=== PATIENT | female | born 1960 | race Caucasian/White ===

== ENCOUNTER 2017-06-11 06:36 | Day surgery (SDC) | payer BC ==
[~2017-06-11] VITALS: Ht 165.1 cm; Wt 169.2 kg
[~2017-06-11 06:36] MED LIST: ALEVE220 M2 PO; BUMEX0.5 MG PO; CALCIUM PO; CINNAMON500 MG PO; CLARITIN,ALAVAR10 MG PO; COZAAR100 MG PO; CRESTOR10 MG PO; EPIPEN ADU0.3 MG/0.3 IM; GINSENG COMPLE1 EACH PO; GLUCOPHAGE500 MG PO; KLOR-CON 1010 ME1 PO; NORVASC5 MG PO; OMEGA-3 1,0501 EACH PO; PREVACID30 MG PO; UNISOM SLEEP AI25 MG PO; VITAMIN B12 PO; VITAMIN PO; ZINC OXYDE PLUS TP
[2017-06-11 07:34] VITALS: BP 159/75
[2017-06-11 10:11] VITALS: BP 138/70
[2017-06-11 10:59] VITALS: BP 134/68
== END 2017-06-11 10:50 | disposition home or self-care (01) ==
LOC: SDC 06:36
PROC: 0UJH7ZZ Inspection of Vagina and Cul-de-sac, Via Natural or Artificial Opening (ICD-10-PCS; principal; 2017-06-11)
DX: N95.0 Postmenopausal bleeding (principal); N85.00 Endometrial hyperplasia, unspecified; Z53.09 Procedure and treatment not carried out because of other contraindication; J38.5 Laryngeal spasm; E66.01 Morbid (severe) obesity due to excess calories; Z68.44 Body mass index [BMI] 60.0-69.9, adult; E11.9 Type 2 diabetes mellitus without complications
CPT/HCPCS: 94640; J0131; J0330; J0690; J1885; J2250; J2405; J3010